=== PATIENT | female | born 1990 | race African-American/Black ===

== ENCOUNTER 2020-06-22 22:16 | Emergency (ER) | payer BC ==
[~2020-06-22] VITALS: Ht 154.9 cm; Wt 105.0 kg
[~2020-06-22 22:16] MED LIST: CEPHALEXIN500 M1 PO; CIPRO 250MG TA250 MG PO; FLEXERIL 1010 MG/TAB PO; PRENATAL1 TA5 PO; ULTRAM 50MG TAB50 MG; VICOPROFEN 7.51 TAB PO; ZOFRAN 4MG T4 MG/TAB PO
[2020-06-22 22:38] VITALS: BP 118/69; TEMP 98.5
[2020-06-22] MEDS ORDERED: VALTREX1 GM PO (23:27)
[2020-06-22 23:38] VITALS: PULSE 68
== END 2020-06-22 23:38 | disposition home or self-care (01) ==
LOC: COL.ER 22:16
DX: B02.9 Zoster without complications (principal); Z87.891 Personal history of nicotine dependence; Z88.6 Allergy status to analgesic agent